=== PATIENT | male | born 1960 | race African-American/Black ===

== ENCOUNTER 2017-04-24 16:09 | Outpatient (CLI) | payer MEDICAID, MEDICARE ==
--- NOTE | 2017-04-25 11:13 | Diagnostic Imaging Report ---
Indications: hip pain Findings: Two views of the left hip were obtained. No acute fracture or malalignment definitely seen. Lower lumbar laminectomy and fusion apparatus noted. Bones are osteopenic. Impression: No acute injury identified
--- NOTE | 2017-04-25 11:13 | Diagnostic Imaging Report ---
Indications: hip pain Findings: Two views of the right hip were obtained. There is a revised right total hip replacement demonstrated. There is no fracture identified. Bones are osteopenic. There is no dislocation identified. Impression: Revised right total hip replacement. No acute fracture appreciated
== END 2017-04-24 18:09 | disposition home or self-care (01) ==
LOC: RAD 16:09
DX: M16.0 Bilateral primary osteoarthritis of hip (principal); M85.88 Other specified disorders of bone density and structure, other site; Z96.641 Presence of right artificial hip joint
CPT/HCPCS: 73502

== ENCOUNTER 2017-10-23 11:11 | Inpatient (IN) | payer MEDICARE, MEDICAID ==
[~2017-10-23] VITALS: Ht 188 cm; Wt 81.6 kg
[2017-10-23 11:35] VITALS: BP 126/72
[2017-10-23] MEDS ORDERED: HYDROmorphone 1mg/ml Carpuject IVP ONE (11:45)
[2017-10-23] MEDS ORDERED: Morphine Sulfate 4mg/ml Inj IM ONE (11:45)
[2017-10-23] MEDS ORDERED: Hydromorphone 0.5mg/0.5ml inj IVP ONE (12:00)
[2017-10-23] MEDS ORDERED: HYDROmorphone 1mg/ml Carpuject IM ONE (12:45)
--- NOTE | 2017-10-23 13:07 | Diagnostic Imaging Report ---
Indication: Neck pain radiating down arm and back pain Technique: Spiral acquisitions obtained through the cervical spine. No IV contrast utilized. Multiplanar reconstructions were generated. Total dose length product 564.28 mGycm. CTDIvol(s) 27.41 mGy. Dose reduction achieved using automated exposure control. Comparison: none Findings: There is minimal posterior offset of C3 on C4, C4-C5, and of C5 on C6. Otherwise normal bony alignment. The vertebral body heights are preserved. There is upper thoracic spine fusion hardware incompletely included. At C2-3, there is mild degenerative disc narrowing. There is broad-based posterior disc protrusion and ligamentum flavum hypertrophy which results in mild narrowing of the spinal canal to 9 mm minimum AP diameter. The neural foramina are preserved. At C3-4, there is severe degenerative disc narrowing a large posterior osteophyte impinges on the left lateral recess. There is severe left and moderate to severe right neural foraminal stenosis. At C4-5, there is there is moderate to severe degenerative disc narrowing. Posterior osteophytes result in mild narrowing of the spinal canal. There is severe narrowing of the bilateral neural foramina. Subchondral cyst with vacuum are seen in the adjacent vertebral bodies At C5-6, posterior osteophytes result in [id number] narrowing of the spinal canal. There is severe bilateral neural foraminal narrowing. There is moderate to severe degenerative disc narrowing. Subchondral cysts with vacuum are seen in the C5 vertebral body At C6-7, there is moderate degenerative disc narrowing. The neural foramina are minimally narrowed. At C7-T1, there is moderate to severe degenerative disc narrowing. There is mild narrowing the right neural foramen. The included extra spinal soft tissues are unremarkable Impression: No acute bony trauma Degenerative changes, as detailed level of the orbits as above The CT scanner at [facility] is accredited by the [employer] and the scans are performed using protocols designed to limit radiation exposure to as low as reasonably achievable to attain images of sufficient resolution adequate for diagnostic evaluation.
[2017-10-23 13:17] LABS: HEMATOCRIT 38.8 % (42.0-52.0); HEMOGLOBIN 12.5 G/DL (14.2-18.0); MEAN CORPUSCULAR VOLUME 94 FL (80-99); PLATELET COUNT 221 K/UL (150-450); RED BLOOD COUNT 4.12 M/UL (4.70-6.10); WHITE BLOOD COUNT 3.3 K/UL (4.8-10.8)
[2017-10-23 13:37] LABS: ALANINE AMINOTRANSFERASE 21 U/L (12-78); ALBUMIN 3.5 G/DL (3.4-5.0); ALBUMIN/GLOBULIN RATIO 0.9 (1.0-2.7); ALKALINE PHOSPHATASE 127 U/L (46-116); ANION GAP 8 mmol/L (5-15); ASPARTATE AMINO TRANSFERASE 55 U/L (15-37); BILIRUBIN,TOTAL 0.4 MG/DL (0.2-1.0); BLOOD UREA NITROGEN 14 mg/dL (7-18); CALCIUM 8.5 MG/DL (8.5-10.1); CARBON DIOXIDE 26 MMOL/L (21-32); CHLORIDE 105 MMOL/L (98-107); CREATININE 0.5 MG/DL (0.55-1.30); SODIUM 138 MMOL/L (136-145)
[2017-10-23 13:38] LABS: POTASSIUM 6.3 MMOL/L (3.5-5.1)
--- NOTE | 2017-10-23 14:22 | Emergency Room Report ---
History of Present Illness General Chief Complaint: Back Pain-No Injury Source: Patient Present Illness HPI 57-year-old male presents ED for evaluation. Patient states he is referred by his PMD. Complaining of severe neck pain and back pain. Denies any recent trauma. States pain is tingling down his right arm. States he had surgery on his back a few months ago. States the pain medications are not helping. Pain is 10 out of 10, sharp, radiating down both legs and down the right arm. Denies chest pain or shortness of breath. No other aggravating relieving factors. Denies any other associated symptoms Allergies: Coded Allergies: No Known Allergies (Verified Allergy, Unknown, 06/20/06) Patient History Past Medical History: HTN Past Surgical History: other - back surgery Pertinent Family History: none Social History: Denies: smoking, alcohol use, drug use Immunizations: UTD Reviewed Nursing Documentation: PMH: Agreed; PSxH: Agreed Nursing Documentation-PMH Hx Hypertension: Yes Review of Systems All Other Systems: negative except mentioned in HPI Physical Exam Vital Signs Date Time Temp Pulse Resp B/P (MAP) Pulse Ox O2 Delivery O2 Flow Rate FiO2 10/23/17 11:18 98.1 80 16 126/72 98 98.1 Sp02 EP Interpretation: reviewed, normal General Appearance: no apparent distress, alert, GCS 15, non-toxic Head: normocephalic, atraumatic Eyes: bilateral eye normal inspection, bilateral eye PERRL ENT: hearing grossly normal, normal pharynx, no angioedema, normal voice Neck: full range of motion, supple/symm/no masses, tender midline Respiratory: chest non-tender, lungs clear, normal breath sounds, speaking full sentences Cardiovascular #1: regular rate, rhythm, no edema Cardiovascular #2: 2+ carotid (R), 2+ carotid (L), 2+ radial (R), 2+ radial (L) , 2+ dorsalis pedis (R), 2+ dorsalis pedis (L) Gastrointestinal: normal bowel sounds, non tender, soft, non-distended, no guarding, no rebound Rectal: deferred Genitourinary: normal inspection, no CVA tenderness, vertebral tenderness Musculoskeletal: back normal, gait/station normal, normal range of motion, non- tender Neurologic: alert, oriented x3, responsive, motor strength/tone normal, sensory intact, speech normal Psychiatric: judgement/insight normal, memory normal, mood/affect normal, no suicidal/homicidal ideation Reflexes: 3+ bicep (R), 3+ bicep (L), 3+ tricep (R), 3+ tricep (L), 3+ knee (R) , 3+ knee (L) Skin: normal color, no rash, warm/dry, well hydrated Lymphatic: no adenopathy Medical Decision Making Diagnostic Impression: Primary Impression: Intractable back pain Additional Impression: Cervical radiculopathy ER Course Hospital Course 57 yo M presents to ED c/o pain in neck and back. radiating down R arm Differential diagnoses include: fx, dislocation, DJD Clinical course Patient placed on stretcher. 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 After initial history and physical I ordered labs, pain meds, CT Cspine Labs - no leukocytosis, Hb/Hct stable. K > 6 but hemolyzed repeat labs pending CT C spine extensive DJD Patient having cervical radiculopathy explaining that radiating pain down the right arm. Spoke to PMD. Patient has had difficulty with pain control despite adequate analgesia patient continues to have pain. Will require admission Case discussed with and he agreed to accept the patient to his service for further care and support I feel this is a highly complex case requiring extensive working including EKG/ Rhythm strip, Xray/CT/US, Blood/urine lab work, repeat exams while in ED, and administration of strong opiates/narcotics for pain control, admission to hospital or close patient follow up. Diagnosis -intractable back pain, cervical radiculopathy Patient admitted to floor in serious condition Labs Test 10/23/17 12:55 White Blood Count 3.3 K/UL (4.8-10.8) Red Blood Count 4.12 M/UL (4.70-6.10) Hemoglobin 12.5 G/DL (14.2-18.0) Hematocrit 38.8 % (42.0-52.0) Mean Corpuscular Volume 94 FL (80-99) Mean Corpuscular Hemoglobin 30.4 PG (27.0-31.0) Mean Corpuscular Hemoglobin Concent 32.3 G/DL (32.0-36.0) Red Cell Distribution Width 16.0 % (11.6-14.8) Platelet Count 221 K/UL (150-450) Mean Platelet Volume 7.3 FL (6.5-10.1) Neutrophils (%) (Auto) % (45.0-75.0) Lymphocytes (%) (Auto) % (20.0-45.0) Monocytes (%) (Auto) % (1.0-10.0) Eosinophils (%) (Auto) % (0.0-3.0) Basophils (%) (Auto) % (0.0-2.0) Differential Total Cells Counted 100 Neutrophils % (Manual) 55 % (45-75) Lymphocytes % (Manual) 32 % (20-45) Monocytes % (Manual) 9 % (1-10) Eosinophils % (Manual) 4 % (0-3) Basophils % (Manual) 0 % (0-2) Band Neutrophils 0 % (0-8) Platelet Estimate Adequate Platelet Morphology Normal Hypochromasia 1+ Anisocytosis 1+ Sodium Level 138 MMOL/L (136-145) Potassium Level 6.3 MMOL/L (3.5-5.1) Chloride Level 105 MMOL/L (98-107) Carbon Dioxide Level 26 MMOL/L (21-32) Anion Gap 8 mmol/L (5-15) Blood Urea Nitrogen 14 mg/dL (7-18) Creatinine 0.5 MG/DL (0.55-1.30) Estimat Glomerular Filtration Rate > 60 mL/min (>60) Glucose Level 100 MG/DL (74-106) Calcium Level 8.5 MG/DL (8.5-10.1) Total Bilirubin 0.4 MG/DL (0.2-1.0) Aspartate Amino Transf (AST/SGOT) 55 U/L (15-37) Alanine Aminotransferase (ALT/SGPT) 21 U/L (12-78) Alkaline Phosphatase 127 U/L (46-116) Total Protein 7.4 G/DL (6.4-8.2) Albumin 3.5 G/DL (3.4-5.0) Globulin 3.9 g/dL Albumin/Globulin Ratio 0.9 (1.0-2.7) CT/MRI/US Diagnostic Results CT/MRI/US Diagnostic Results : Imaging Test Ordered: CT C spine Impression multilevel DJD Last Vital Signs Date Time Temp Pulse Resp B/P (MAP) Pulse Ox O2 Delivery O2 Flow Rate FiO2 4/3/18 11:35 98.1 80 16 126/72 98 98.1 Status: improved Disposition: ADMITTED INPATIENT Condition: Serious Referrals: NON PHYSICIAN (PCP) Duran Clayton MD Oct 23, 2017 14:22
[2017-10-23] MEDS ORDERED: LYRICA75 M1 ORAL (15:22)
[2017-10-23] MEDS ORDERED: DILAUDID8 MG PO (15:22)
[2017-10-23] MEDS ORDERED: XANAX XR0.5 MG ORAL (15:27)
[2017-10-23] MEDS ORDERED: TAMSULOSIN HCL0.4 MG ORAL (15:27)
[2017-10-23 16:27] VITALS: BP 150/78
[2017-10-23] MEDS: Lyrica 50mg cap ORAL SCH (17:31)
[2017-10-23 20:00] VITALS: BP 113/64
[2017-10-23] MEDS: Tamsulosin 0.4mg cap ORAL SCH (20:48)
[2017-10-23] MEDS: Heparin 5000 units/ml inj SUBQ SCH (20:49)
--- NOTE | 2017-10-23 21:56 | History & Physical ---
History and Physical History & Physicial thi sis an unfortunate male with historyof degernmative disc disease initrally [place] spine [place] in [place] has had hip painand back pain noted to have diskitis o fthe lyumbar spine had spien surgery for that had fusion and had recurent spine MRSA infection He then had septic hip and had few hip surgery and revision and required prolonged antibiotic therapy he has been seen and eval by Dr curiel ID he has been having a l;ot of pain recetnly his painDr discharged him fromhis clinic PMH leukopenia thrombocytopenioa hepatiti sc failed back syndrome PSH: numerous spine and hip surgery historyof tracheostomy MEDICATION lyrica xanax flomax doxycyline was on alot of painmeds before vitals reviewed no jvd cta s1,as12,rrr soft no clubbing lumbar and thoracic failed spine disease chronic pain ? tolerance to medicaiotn nad dependency plan get ct lumbar and thoracic and get social service director eval transfer to rehab soon MARANDA HENDRICKSON Oct 23, 2017 21:56
[2017-10-23 23:57] VITALS: BP 99/57
[2017-10-24 01:00] VITALS: BP 110/49
[2017-10-24 04:00] VITALS: BP 116/66
[2017-10-24 07:03] LABS: ALANINE AMINOTRANSFERASE 17 U/L (12-78); ALBUMIN 3.1 G/DL (3.4-5.0); ALKALINE PHOSPHATASE 120 U/L (46-116); ANION GAP 6 mmol/L (5-15); ASPARTATE AMINO TRANSFERASE 31 U/L (15-37); BILIRUBIN,TOTAL 0.4 MG/DL (0.2-1.0); BLOOD UREA NITROGEN 21 mg/dL (7-18); CALCIUM 8.3 MG/DL (8.5-10.1); CARBON DIOXIDE 28 MMOL/L (21-32); CHLORIDE 103 MMOL/L (98-107); CREATININE 0.7 MG/DL (0.55-1.30); POTASSIUM 3.7 MMOL/L (3.5-5.1); SODIUM 137 MMOL/L (136-145)
[2017-10-24 07:09] LABS: BASOPHILS % (AUTO) 1.3 % (0.0-2.0); EOSINOPHILS % (AUTO) 7.1 % (0.0-3.0); HEMATOCRIT 36.8 % (42.0-52.0); HEMOGLOBIN 11.6 G/DL (14.2-18.0); LYMPHOCYTES % (AUTO) 42.2 % (20.0-45.0); MEAN CORPUSCULAR VOLUME 95 FL (80-99); MONOCYTES % (AUTO) 11.3 % (1.0-10.0); PLATELET COUNT 187 K/UL (150-450); RED BLOOD COUNT 3.89 M/UL (4.70-6.10); RED CELL DISTRIBUTION WIDTH 15.6 % (11.6-14.8); WHITE BLOOD COUNT 3.6 K/UL (4.8-10.8)
[2017-10-24 08:00] VITALS: BP 114/54
[2017-10-24] MEDS: Lyrica 50mg cap ORAL SCH ×3 (08:16→17:36)
[2017-10-24] MEDS: ALPRAZolam 0.5mg tab ORAL SCH ×2 (08:16→17:36)
[2017-10-24] MEDS: Heparin 5000 units/ml inj SUBQ SCH ×2 (08:20→20:29)
[2017-10-24] MEDS ORDERED: ALPRAZolam 0.5mg tab ORAL SCH (09:00)
--- NOTE | 2017-10-24 09:26 | Diagnostic Imaging Report ---
Indication: Back pain Technique: Continuous helical transaxial imaging of the lumbar spine was obtained from the lung bases to the pubic symphysis. No IV contrast was administered. Coronal 2-D reformats were also obtained. Study obtained in a Siemens sensation [address] Total Dose length Product (DLP): 629.[address] Dose Index Volume (CTDIvol): 17.51 mGy Comparison: None Findings: The field of view encompasses T11 through majority of the sacrum. Multilevel posterior fusion has been performed with pedicle screws and fusion rods from T11 through S1. Above T11 there may be continuation of hardware but this is beyond the field of view. The fusion apparatus is overlapping. At the lower thoracic spine, there are bilateral pedicle screws and fusion rods at both T11 and T12. The rods are interconnected with a set of posterior lumbar fusion rods. The lumbar fusion rods are associated with bilateral pedicle screws at L1, left unilateral pedicle screw at L2, bilateral pedicle screws at L3, L4, L5 and S1. On the left side there is a screw that traverses the left ilium adjacent to and partly traversing the sacroiliac joint. There is diffuse osseous union of the facets throughout the visualized portions of the lower thoracic and lumbar spine. Multilevel interbody fusion also noted throughout the lumbar spine. Buttressing anterior vertebral screw also noted at the anterior inferior aspect of the L4 vertebra. Prosthetic disks at L1-2, L2-3, L3-4, L4-5 demonstrated. Partial fusion of the right sacroiliac joint noted. There is streak artifact from metallic hardware limiting evaluation. But there is no obvious fracture. Laminectomies also noted at some of the levels including left side at L1-2, bilateral at L4-5 and L5-S1. Moderate to PATIENT is noted within the aorta. Moderate amount of fecal material distending the rectosigmoid colon. Right total hip prosthesis noted. Evaluation of the central spinal canal is difficult because of the artifact present. At L4-5 there is a large osseous fragment that projects into the canal. For further evaluation of this MR may be of benefit. IMPRESSION: Multilevel lower thoracic and lumbar fusion as described above. Diffuse anterior interbody and posterior facet fusion noted. Multilevel laminectomy is also present. Prominent bone spur projecting into the thecal sac at L4-5. Further evaluation of this with MR may be of benefit as warranted clinically. Atherosclerotic disease Fecal impaction The CT scanner at [facility] is accredited by the [employer] and the scans are performed using dose optimization techniques as appropriate to a performed exam including Automatic Exposure control.
[2017-10-24 12:00] VITALS: BP 142/62
[2017-10-24] MEDS ORDERED: NORVASC2.5 MG ORAL (12:28)
[2017-10-24] MEDS ORDERED: SOMA350 MG PO (12:28)
--- NOTE | 2017-10-24 14:52 | Consultation ---
Consult Note Assessment/Plan Renal consult dictated # [id number] KIMBERLY ALVAREZ Oct 24, 2017 14:52
[2017-10-24 16:00] VITALS: BP 129/68
--- NOTE | 2017-10-24 19:15 | Consultation ---
DATE OF CONSULTATION: 10/24/2017 NEPHROLOGY CONSULTATION CONSULTING PHYSICIAN: Naresh Bhatt M.D. REFERRING PHYSICIAN: Raphael Bah M.D. REASON FOR CONSULTATION: Hyperkalemia, BPH, and mild hypertension. HISTORY OF PRESENT ILLNESS: The patient is a 57-year-old male who has had back pain. The patient has had problems with diskitis surgery with fusion and recurrent spine MRSA infections. The patient was admitted and was found to have a potassium 6.3 yesterday however the potassium is down to 3.7 today, this in the presence of a normal kidney function. The patient has also some elevation of blood pressure 142/62 and also he has history of enlarged prostate and I was asked to see him in Nephrology consultation. PAST MEDICAL HISTORY: Also includes history of hepatitis C, failed back syndrome, numerous supine and hip surgeries, history of tracheostomy, leukopenia, and thrombocytopenia. MEDICATIONS: Reviewed in the EMR. SOCIAL HISTORY: The patient has been drinking beer recently because of his pain. He lives in the unit with his aunt. ALLERGIES: No known drug allergies. REVIEW OF SYSTEMS: Noncontributory. PHYSICAL EXAMINATION: GENERAL: The patient is a 57-year-old male, in no acute distress. VITAL SIGNS: Blood pressure 142/62, pulse 63, temperature 97.5, respiratory is 20. HEENT: [place] conjunctivae. Anicteric sclerae. NECK: Supple. LUNGS: Clear to auscultation. HEART: S1 and S2 without murmurs or rubs. ABDOMEN: Soft, nontender. EXTREMITIES: No cyanosis or edema. LABORATORY FINDINGS: CBC shows WBC of 3600, hematocrit 36.8, hemoglobin is 11.6, platelets 187,000. Chemistry panel shows a serum sodium of 137, potassium 3.7, chloride 103, CO2 of 28, BUN is 21, and creatinine 0.7, calcium is 8.3. ASSESSMENT: This is a 57-year-old male who was admitted with back pain and shoulder pain. I was asked to see him because of his hyperkalemia. It appears that his hyperkalemia had been a laboratory error since the repeat is 3.7, also patient was not getting any potassium at home, also his kidney function is normal. The other issue he has is his BPH and he is taking Flomax. He states that he is going only once at night to urinate. It appears that his symptoms are under control. His elevation of blood pressure may be related to his pain at this point. PLAN: 1. PSA level will be checked to make sure the patient does not have any sign of any malignancy with high PSA. 2. I would continue Flomax as is. 3. A vitamin D level will be checked as his serum calcium is somewhat on the low side. 4. I would hold off any blood pressure medications and observe him for now. Thank you very much, Dr. Bah, for this consultation. Naresh Bhatt M.D. DR: Gabrielle JOB#: [id number] CC:
[2017-10-24 19:48] VITALS: BP 135/75
[2017-10-24] MEDS: Tamsulosin 0.4mg cap ORAL SCH (20:27)
--- NOTE | 2017-10-24 20:46 | General Progress Note ---
Assessment/Plan Status Narrative hyperkalemia ? lab error failed back synderorme cervical adisc disease groin numbness likleywill be permenant to rehab [facility] [place]. Subjective Date patient seen: Oct 24, 2017 Time patient seen: 20:44 Constitutional: Reports: no symptoms HEENT: Reports: no symptoms Allergies: Coded Allergies: No Known Allergies (Verified Allergy, Unknown, 06/20/06) Subjective compliandso f pain no fevernochills no treasure stpain saha sgroin numbnes sand tingling Objective Last 24 Hour Vital Signs Date Time Temp Pulse Resp B/P (MAP) Pulse Ox O2 Delivery O2 Flow Rate FiO2 10/24/17 19:54 Room Air 10/24/17 19:48 97.3 66 20 135/75 100 Room Air 97.3 10/24/17 18:28 97.9 10/24/17 17:58 97.9 10/24/17 17:20 Room Air 10/24/17 16:00 97.9 62 18 129/68 99 97.9 10/24/17 13:37 97.5 10/24/17 13:01 Room Air 10/24/17 12:00 97.5 63 20 142/62 100 97.5 10/24/17 09:27 97.3 10/24/17 08:00 97.3 70 19 114/54 99 Room Air 97.3 10/24/17 08:00 97.3 70 19 114/54 99 97.3 10/24/17 05:06 97.8 10/24/17 04:19 Room Air 10/24/17 04:00 97.8 73 18 116/66 97 97.8 10/24/17 01:02 97.6 10/24/17 01:00 74 110/49 10/24/17 00:12 Room Air 10/23/17 23:57 97.6 70 18 99/57 97 97.6 10/23/17 20:49 98.3 Intake and Output 10/23/17 10/24/17 19:00 07:00 Intake Total 375 ml 480 ml Balance 375 ml 480 ml Intake Oral 375 ml 480 ml # Voids 2 2 # Bowel Movements 1 Laboratory Tests 10/24/17 05:10: White Blood Count 3.6L, Red Blood Count 3.89L, Hemoglobin 11.6L, Hematocrit 36.8L, Mean Corpuscular Volume 95, Mean Corpuscular Hemoglobin 29.8, Mean Corpuscular Hemoglobin Concent 31.4L, Red Cell Distribution Width 15.6H, Platelet Count 187, Mean Platelet Volume 7.2, Neutrophils (%) (Auto) 38.0L, Lymphocytes (%) (Auto) 42.2, Monocytes (%) (Auto) 11.3H, Eosinophils (%) (Auto) 7.1H, Basophils (%) (Auto) 1.3, Sodium Level 137, Potassium Level 3.7, Chloride Level 103, Carbon Dioxide Level 28, Anion Gap 6, Blood Urea Nitrogen 21H, Creatinine 0.7, Estimat Glomerular Filtration Rate > 60, Glucose Level 100, Calcium Level 8.3L, Total Bilirubin 0.4, Aspartate Amino Transf (AST/SGOT) 31, Alanine Aminotransferase (ALT/SGPT) 17, Alkaline Phosphatase 120H, Total Protein 6.3L, Albumin 3.1L, Globulin 3.2, Albumin/Globulin Ratio 1.0 Height (Feet): 6 Height (Inches): 2.00 Weight (Pounds): 180 General Appearance: WD/WN Cardiovascular: normal rate, regular rhythm, no JVD Respiratory/Chest: chest wall non-tender Abdomen: soft MARANDA HENDRICKSON Oct 24, 2017 20:46
[2017-10-24] MEDS: Zolpidem 5mg tab ORAL PRN (23:17)
[2017-10-25] VITALS: BP 105/62
[2017-10-25 01:32] LABS: APPEARANCE,URINE CLEAR; BILIRUBIN, URINE NEGATIVE (NEGATIVE); COLOR,URINE PALE YELLOW; GLUCOSE, URINE (UA) NEGATIVE (NEGATIVE); KETONES,URINE NEGATIVE (NEGATIVE); LEUKOCYTE ESTERASE ,URINE NEGATIVE (NEGATIVE); NITRITE,URINE NEGATIVE (NEGATIVE); PH,URINE 7 (4.5-8.0); PROTEIN,URINE NEGATIVE (NEGATIVE); UROBILINOGEN,URINE NORMAL MG/DL (0.0-1.0)
[2017-10-25 04:00] VITALS: BP 116/77
[2017-10-25 08:00] VITALS: BP 134/76
[2017-10-25] MEDS: ALPRAZolam 0.5mg tab ORAL SCH ×2 (08:51→17:47)
[2017-10-25] MEDS: Lyrica 50mg cap ORAL SCH ×3 (08:51→17:47)
[2017-10-25] MEDS: Heparin 5000 units/ml inj SUBQ SCH ×2 (08:55→20:12)
[2017-10-25 12:00] VITALS: BP 120/59
--- NOTE | 2017-10-25 12:11 | Nephrology Progress Note ---
Assessment/Plan Problem List: (1) Cervical radiculopathy (2) Intractable back pain (3) Urinary retention Assessment PSA low at 0.18 Plan cont flow max pain meds watch BP Subjective Subjective C/O pains and aches Objective Objective Last 24 Hour Vital Signs Date Time Temp Pulse Resp B/P (MAP) Pulse Ox O2 Delivery O2 Flow Rate FiO2 10/25/17 08:00 97.6 54 19 134/76 100 97.6 10/25/17 04:00 97.3 58 18 116/77 99 97.3 10/25/17 02:51 97.5 10/25/17 02:21 97.5 10/25/17 00:28 Room Air 10/25/17 00:00 97.5 66 18 105/62 96 97.5 10/24/17 22:06 97.3 10/24/17 19:54 Room Air 10/24/17 19:48 97.3 66 20 135/75 100 Room Air 97.3 10/24/17 17:58 97.9 10/24/17 17:20 Room Air 10/24/17 16:00 97.9 62 18 129/68 99 97.9 10/24/17 13:37 97.5 10/24/17 13:01 Room Air Intake and Output 10/24/17 10/25/17 19:00 07:00 Intake Total 2500 ml 900 ml Output Total 3200 ml 2400 ml Balance -700 ml -1500 ml Intake Oral 2500 ml 900 ml Output Urine Total 3200 ml 2400 ml Laboratory Tests 10/24/17 23:32: Urine Color Pale yellow, Urine Appearance Clear, Urine pH 7, Urine Specific [place] 1.010, Urine Protein Negative, Urine Glucose (UA) Negative, Urine Ketones Negative, Urine Occult Blood Negative, Urine Nitrite Negative, Urine Bilirubin Negative, Urine Urobilinogen Normal, Urine Leukocyte Esterase Negative , Urine RBC 0, Urine WBC 0, Urine Squamous Epithelial Cells None, Urine Bacteria None 10/25/17 06:37: Prostate Specific Antigen 0.18, Vitamin D 25-Hydroxy [Pending], 25-Hydroxy Vitamin D2 [Pending], 25-Hydroxy Vitamin D3 [Pending] Height (Feet): 6 Height (Inches): 2.00 Weight (Pounds): 180 Cardiovascular: normal rate Respiratory/Chest: lungs clear Extremities: other - no edema KIMBERLY ALVAREZ Oct 25, 2017 12:11
[2017-10-25 15:49] VITALS: BP 124/70
--- NOTE | 2017-10-25 19:50 | General Progress Note ---
Assessment/Plan Status Narrative failed back syndroem failed thoraci syndrome cervical radiculitis jay arhtropahty history of tracheostomy history of hep c leukopenia history plan [facility] [place] and have him have shoulder surgery then to go to rehab. Subjective Date patient seen: Oct 25, 2017 Time patient seen: 19:49 Constitutional: Reports: no symptoms HEENT: Reports: no symptoms Cardiovascular: Reports: no symptoms Allergies: Coded Allergies: No Known Allergies (Verified Allergy, Unknown, 06/20/06) Subjective compliandso f pain no fevernochills no treasure stpain saha sgroin numbnes sand tingling Objective Last 24 Hour Vital Signs Date Time Temp Pulse Resp B/P (MAP) Pulse Ox O2 Delivery O2 Flow Rate FiO2 10/25/17 15:49 96.9 60 20 124/70 100 96.9 10/25/17 12:00 96.5 66 20 120/59 100 96.5 10/25/17 08:00 97.6 54 19 134/76 100 97.6 10/25/17 04:00 97.3 58 18 116/77 99 97.3 10/25/17 02:51 97.5 10/25/17 02:21 97.5 10/25/17 00:28 Room Air 10/25/17 00:00 97.5 66 18 105/62 96 97.5 10/24/17 22:06 97.3 10/24/17 19:54 Room Air Intake and Output 10/24/17 10/25/17 19:00 07:00 Intake Total 2500 ml 900 ml Output Total 3200 ml 2400 ml Balance -700 ml -1500 ml Intake Oral 2500 ml 900 ml Output Urine Total 3200 ml 2400 ml Laboratory Tests 10/24/17 23:32: Urine Color Pale yellow, Urine Appearance Clear, Urine pH 7, Urine Specific [place] 1.010, Urine Protein Negative, Urine Glucose (UA) Negative, Urine Ketones Negative, Urine Occult Blood Negative, Urine Nitrite Negative, Urine Bilirubin Negative, Urine Urobilinogen Normal, Urine Leukocyte Esterase Negative , Urine RBC 0, Urine WBC 0, Urine Squamous Epithelial Cells None, Urine Bacteria None 10/25/17 06:37: Prostate Specific Antigen 0.18, Vitamin D 25-Hydroxy [Pending], 25-Hydroxy Vitamin D2 [Pending], 25-Hydroxy Vitamin D3 [Pending] Height (Feet): 6 Height (Inches): 2.00 Weight (Pounds): 180 General Appearance: WD/WN Cardiovascular: no JVD Respiratory/Chest: lungs clear Abdomen: non tender, soft MARANDA HENDRICKSON Oct 25, 2017 19:50
[2017-10-25 20:00] VITALS: BP 130/69
[2017-10-25] MEDS: Tamsulosin 0.4mg cap ORAL SCH (20:08)
--- NOTE | 2017-10-25 20:11 | Consultation ---
Consult Note Consult Note Dictated no. [id number]. VANESA DIEGO Oct 25, 2017 20:11
--- NOTE | 2017-10-25 21:30 | Consultation ---
DATE OF CONSULTATION: 10/25/2017 CONSULTING PHYSICIAN: Cristian Contreras M.D. ATTENDING PHYSICIAN: Raphael Bah M.D. REASON FOR CONSULTATION: Detoxication for opiates. CHIEF COMPLAINT: The patient is a 57-year-old male with long history of lumbar stenosis and was admitted with lumbar spine pain and bilateral hip pain. HISTORY OF PRESENT ILLNESS: The patient has a long history of lumbar spine pain. The patient is status post thoracolumbar fusion. The patient also has had hip surgery. The patient presented to [place] emergency room. The patient was admitted for low back pain and bilateral hip pain. REVIEW OF SYSTEMS: CONSTITUTIONAL: The patient denies weight loss or gain. The patient denies fevers or chills. HEENT: The patient denies ear or throat pain. The patient denies headache. CARDIOVASCULAR: The patient denies palpitations or chest pain. CHEST: The patient denies wheezes or shortness of breath. ABDOMINAL: The patient denies nausea, vomiting, diarrhea, or constipation. GENITOURINARY: The patient denies dysuria or increased frequency of urination. NEUROMUSCULAR: The patient complains of low back pain as above. The patient also complains of neck pain. PAST MEDICAL HISTORY: Significant for: 1. Hypertension. 2. Lumbar stenosis. 3. I am next hepatitis C. PAST SURGICAL HISTORY: Significant for: 1. Multiple back surgeries including thoracolumbar fusion. 2. Bilateral hip surgery. CURRENT MEDICATIONS: 1. Alprazolam 0.5 mg p.o. daily. 2. Amlodipine 2.5 mg p.o. daily. 3. Soma 350 mg p.o. three times daily. 4. Dilaudid 4 mg p.o. q.6 h. p.r.n. 5. Lyrica 100 mg p.o. three times daily. 6. Flomax 0.4 mg p.o. at bedtime. ALLERGIES: No known drug allergies. SOCIAL HISTORY: The patient is single and is disabled. The patient denies tobacco or alcohol use. PHYSICAL EXAMINATION: VITAL SIGNS: Temperature 97.3, respirations 18, pulse 58, and blood pressure . GENERAL: The patient is a well-developed and well-nourished thin-appearing male, in no apparent distress. HEENT: Eyes, pupils are equal and responsive to light and accommodation. Extraocular movements are intact. NECK: Supple without lymphadenopathy. CHEST: Lungs are clear to auscultation bilaterally without wheezes or rales. CARDIOVASCULAR: Regular rate. S1, S2 normal without murmurs, rubs, or gallops. ABDOMEN: Soft, nontender, and nondistended. Positive bowel sounds. No evidence of hepatosplenomegaly. Currently, no rebound or guarding noted. EXTREMITIES: Negative for clubbing, cyanosis, or edema. RECTAL/GENITAL: Refused. NEUROLOGIC: Cranial nerves II to XII are grossly intact without focal deficits. BACK: Lumbar spine pain to palpation. LABORATORY AND DIAGNOSTIC DATA: Laboratory studies, WBC 3.3, hemoglobin 12.5, hematocrit 38.8, and platelets 221,000. Sodium 138, potassium 4.2, chloride 105, CO2 26, BUN 14, creatinine 0.5, and glucose 100. CT scan of the lumbar spine revealed thoracic and lumbar spine fusion. There are no acute fractures noted. ASSESSMENT: This is a 57-year-old male with: 1. Lumbar spine pain. 2. Lumbar stenosis. 3. Cervical spine pain. 4. Acute radicular syndrome. 5. Hypertension. 6. Hepatitis C. 7. Benign prostatic hypertrophy. TREATMENT: 1. Low back pain/neck pain. The patient is currently using intravenous Dilaudid. The patient has been offered transfer to [facility] for opiate detoxification. Case management is aware. The patient will be transferred to [facility] at [place] if and when the patient is accepted. 2. Hypertension. Continue Norvasc as above. 3. Hepatitis C, status post therapy. 4. Benign prostatic hypertrophy. Continue Flomax as above. Cristian Contreras M.D. DR: SERGIO JOB#: [id number] CC:
[2017-10-26] VITALS: BP 123/66
[2017-10-26] MEDS: Zolpidem 5mg tab ORAL PRN ×2 (00:18→20:29)
[2017-10-26 04:00] VITALS: BP 124/73
[2017-10-26 08:00] VITALS: BP 137/61
[2017-10-26] MEDS: ALPRAZolam 0.5mg tab ORAL SCH ×2 (09:52→18:00)
[2017-10-26] MEDS: Lyrica 50mg cap ORAL SCH ×3 (09:52→18:00)
[2017-10-26] MEDS: Heparin 5000 units/ml inj SUBQ SCH ×2 (09:57→20:30)
[2017-10-26 11:46] VITALS: BP 125/70
--- NOTE | 2017-10-26 13:48 | Nephrology Progress Note ---
Assessment/Plan Problem List: (1) Cervical radiculopathy (2) Intractable back pain (3) Urinary retention Assessment PSA low at 0.18 Plan cont flow max pain meds watch BP will discuss with Dr Bah Subjective Subjective wants surgery on his R shoulder Objective Objective Last 24 Hour Vital Signs Date Time Temp Pulse Resp B/P (MAP) Pulse Ox O2 Delivery O2 Flow Rate FiO2 10/26/17 11:46 96.8 70 20 125/70 99 96.8 10/26/17 08:00 97.1 65 20 137/61 98 97.1 10/26/17 04:00 97.3 64 18 124/73 100 97.3 10/26/17 00:00 97.3 62 18 123/66 100 97.3 10/25/17 20:00 97.0 64 20 130/69 100 97.0 10/25/17 15:49 96.9 60 20 124/70 100 96.9 Intake and Output 10/25/17 10/26/17 19:00 07:00 Intake Total 730 ml 800 ml Output Total 700 ml Balance 30 ml 800 ml Intake Oral 730 ml 800 ml Output Urine Total 700 ml # Voids 1 # Bowel Movements 1 1 Height (Feet): 6 Height (Inches): 2.00 Weight (Pounds): 180 Cardiovascular: normal rate Respiratory/Chest: lungs clear IKMBERLY ALVAREZ Oct 26, 2017 13:48
[2017-10-26 15:34] VITALS: BP 121/83
[2017-10-26] MEDS: HYDROcodone/Acetamin 10/325 tab ORAL PRN ×2 (18:19→22:40)
[2017-10-26 20:00] VITALS: BP 143/72
[2017-10-26] MEDS: Tamsulosin 0.4mg cap ORAL SCH (20:29)
[2017-10-27] VITALS (7 sets, daily range): BP systolic 113–154; BP diastolic 64–80
[2017-10-27] MEDS: HYDROcodone/Acetamin 10/325 tab ORAL PRN ×5 (02:40→19:52)
[2017-10-27] MEDS: Lyrica 50mg cap ORAL SCH ×3 (08:45→17:34)
[2017-10-27] MEDS: ALPRAZolam 0.5mg tab ORAL SCH ×2 (08:45→17:34)
[2017-10-27] MEDS: Heparin 5000 units/ml inj SUBQ SCH ×2 (08:45→19:53)
--- NOTE | 2017-10-27 14:44 | Nephrology Progress Note ---
Assessment/Plan Problem List: (1) Cervical radiculopathy (2) Intractable back pain (3) Urinary retention Assessment PSA low at 0.18 Plan cont flow max pain meds check Vit D Discussed with Dr Bah Subjective Subjective In NAD Objective Objective Last 24 Hour Vital Signs Date Time Temp Pulse Resp B/P (MAP) Pulse Ox O2 Delivery O2 Flow Rate FiO2 10/27/17 12:01 97.9 69 20 154/78 100 97.9 10/27/17 08:09 97.3 65 20 117/64 99 97.3 10/27/17 05:31 97.0 68 16 113/76 98 97.0 10/27/17 04:00 96.9 68 16 113/76 98 96.9 10/27/17 00:00 97.9 81 17 145/80 93 97.9 10/26/17 20:00 97.0 61 14 143/72 100 97.0 10/26/17 15:34 96.9 71 20 121/83 99 96.9 Intake and Output 10/26/17 10/27/17 19:00 07:00 Intake Total 970 ml 2100 ml Output Total 1900 ml Balance 970 ml 200 ml Intake Oral 970 ml 2100 ml Output Urine Total 1900 ml # Voids 4 # Bowel Movements 1 1 Height (Feet): 6 Height (Inches): 2.00 Weight (Pounds): 180 Cardiovascular: normal rate Respiratory/Chest: lungs clear KIMBERLY ALVAREZ Oct 27, 2017 14:44
[2017-10-27] MEDS: Tamsulosin 0.4mg cap ORAL SCH (19:51)
[2017-10-28] VITALS: BP 153/73
[2017-10-28] MEDS: HYDROcodone/Acetamin 10/325 tab ORAL PRN ×6 (00:06→21:28)
[2017-10-28 04:00] VITALS: BP 108/59
[2017-10-28 07:59] VITALS: BP 159/84
[2017-10-28] MEDS: ALPRAZolam 0.5mg tab ORAL SCH ×2 (09:00→18:00)
[2017-10-28] MEDS: Lyrica 50mg cap ORAL SCH ×3 (09:00→18:04)
[2017-10-28] MEDS: Heparin 5000 units/ml inj SUBQ SCH ×2 (09:00→21:29)
[2017-10-28 12:00] VITALS: BP 153/78
--- NOTE | 2017-10-28 14:02 | General Progress Note ---
Assessment/Plan Problem List: (1) Cervical radiculopathy ICD Codes: M54.12 - Radiculopathy, cervical region SNOMED: 16375819 (2) Intractable back pain ICD Codes: M54.9 - Dorsalgia, unspecified SNOMED: 482862416 (3) Urinary retention ICD Codes: R33.9 - Retention of urine, unspecified SNOMED: 189181632 Assessment/Plan Po Pain meds await placement Subjective Allergies: Coded Allergies: No Known Allergies (Verified Allergy, Unknown, 06/20/06) Subjective seen for Dr Bah feels the same Objective Last 24 Hour Vital Signs Date Time Temp Pulse Resp B/P (MAP) Pulse Ox O2 Delivery O2 Flow Rate FiO2 10/28/17 12:00 97.6 69 18 153/78 100 Room Air 97.6 10/28/17 07:59 97.6 65 18 159/84 99 Room Air 97.6 10/28/17 06:29 97.9 10/28/17 05:31 97.9 10/28/17 04:00 98 Room Air 10/28/17 04:00 97.9 60 19 108/59 98 Room Air 97.9 10/28/17 00:06 97.7 10/28/17 00:00 100 Room Air 10/28/17 00:00 97.7 60 18 153/73 100 Room Air 97.7 10/27/17 20:33 100 Room Air 10/27/17 20:02 97.7 61 20 138/69 100 Room Air 97.7 10/27/17 19:52 98.0 10/27/17 15:43 98.0 61 20 145/74 100 98.0 Intake and Output 10/27/17 10/28/17 19:00 07:00 Intake Total 780 ml Balance 780 ml Intake Oral 780 ml # Voids 2 Height (Feet): 6 Height (Inches): 2.00 Weight (Pounds): 180 Cardiovascular: normal rate Respiratory/Chest: lungs clear Edema: no edema noted KIMBERLY Ohara Oct 28, 2017 14:02
[2017-10-28 15:54] VITALS: BP 130/67
--- NOTE | 2017-10-28 19:59 | General Progress Note ---
Assessment/Plan Status Narrative impression: polyarhtralgia cervical disc disease failed bacjk syndroem history of septic spien history of septic hi[p plan transfer to rehab when room available. Subjective Date patient seen: Oct 28, 2017 Time patient seen: 19:58 HEENT: Reports: no symptoms Allergies: Coded Allergies: No Known Allergies (Verified Allergy, Unknown, 06/20/06) Subjective has shoudler and neck pain Objective Last 24 Hour Vital Signs Date Time Temp Pulse Resp B/P (MAP) Pulse Ox O2 Delivery O2 Flow Rate FiO2 10/28/17 15:54 97.3 56 18 130/67 99 Room Air 97.3 10/28/17 12:00 97.6 69 18 153/78 100 Room Air 97.6 10/28/17 07:59 97.6 65 18 159/84 99 Room Air 97.6 10/28/17 06:29 97.9 10/28/17 05:31 97.9 10/28/17 04:00 98 Room Air 10/28/17 04:00 97.9 60 19 108/59 98 Room Air 97.9 10/28/17 00:06 97.7 10/28/17 00:00 100 Room Air 10/28/17 00:00 97.7 60 18 153/73 100 Room Air 97.7 10/27/17 20:33 100 Room Air 10/27/17 20:02 97.7 61 20 138/69 100 Room Air 97.7 Intake and Output 10/27/17 10/28/17 19:00 07:00 Intake Total 780 ml Balance 780 ml Intake Oral 780 ml # Voids 2 no jvd cta s12,sw,frrr soft has a trach site wound wel lhealed cta soft s1.s2.rrr Height (Feet): 6 Height (Inches): 2.00 Weight (Pounds): 180 MARANDA HENDRICKSON Oct 28, 2017 19:59
[2017-10-28 20:00] VITALS: BP 147/68
[2017-10-28] MEDS: Tamsulosin 0.4mg cap ORAL SCH (21:27)
[2017-10-29] VITALS: BP 148/74
[2017-10-29 04:00] VITALS: BP 141/76
[2017-10-29] MEDS: HYDROcodone/Acetamin 10/325 tab ORAL PRN ×2 (04:45→09:03)
[2017-10-29 08:00] VITALS: BP 134/69
[2017-10-29] MEDS: Lyrica 50mg cap ORAL SCH (09:04)
[2017-10-29] MEDS: ALPRAZolam 0.5mg tab ORAL SCH (09:04)
[2017-10-29] MEDS: Heparin 5000 units/ml inj SUBQ SCH (09:05)
[2017-10-29 12:00] VITALS: BP 118/65
--- NOTE | 2017-10-30 13:48 | Discharge Summary ---
Discharge Summary Discharge Summary Discharge Summary DATE OF ADMISSION: 10/23/2017 DATE OF DISCHARGE: 10/29/2017 REASON FOR ADMISSION: 57 years old male with history of multiple back surgeries, history of septic spine and septic hip, chronic back pain, hypertension, GERD, hepatitis C, s/p treatment, presented to emergency department for evaluation. Patient complained of severe neck pain and back pain. He denied recent trauma. He reported pain tingling down his right arm. Patient apparently had surgery in his back few months ago. Patient reported that pain medications were not helping. Patient reported pain 10 out of 10 ,sharp, radiating down both legs and down the right arm. Patient denied chest pain, shortness of breath. Vital signs were stable. CT of the cervical spine revealed no acute bony trauma, however it showed degenerative multilevel changes. CT L-spine revealed multilevel lower thoracic and lumbar fusion. Diffuse anterior interbody and posterior facet fusion. Multilevel laminectomy. Prominent bone spur projecting into the thecal sac at L4-L5. Laboratory workup was unremarkable , except potassium -6.3. Patient was admitted with diagnosis of cervical radiculopathy, chronic back pain, chronic pain. CONSULTANTS: retail marketing coordinator Dr. Robles detox specialist Dr. Contreras [facility]SE: Patient admitted to medical surgical floor. Nephrology and detox specialist consults were requested. Pain management was addressed with different analgesics including Soma, Lyrica and Dilaudid. Patient was closely monitored. Patient was working with physical and occupational therapists. Full precautions were maintained. Hyperkalemia was corrected, potassium down to 4.2 after treatment. Vitamin D level low -26, patient will need replacement of vitamin D as outpatient. Patient status post treatment for hepatitis C. LFT were within normal limits. Flomax was continued , no difficulty with voiding. Blood pressure was managed with calcium channel yung with holding parameters as needed. Initial plan was to transfer patient to [facility] for opiate detoxification program. However, unable to transfer. Unable to transfer patient into the shelter facility as well . Patient was discharged home. Patient was stable for discharge. FINAL DIAGNOSES: Cervical disc disease Acute radicular syndrome Failed back syndrome Chronic pain Lumbar stenosis History of septic spine History of septic hip Polyarthralgia Hypertension Hepatitis C , status post treatment BPH Hyperkalemia, resolved DISCHARGE MEDICATIONS: See Medication Reconciliation list. DISCHARGE INSTRUCTIONS: Patient was discharged home Follow up with primary care provide in one week. I have been assigned to dictate discharge summary for this account. I was not involved in the patient's management. Abdirahman (AvinashMaryanne cole NP Oct 30, 2017 13:48
== END 2017-10-29 13:00 | disposition home or self-care (01) | DRG 552 ==
LOC: EMR 12:05 → 4W 13:20 → EDBEDREQ 13:32
DX: M50.10 Cervical disc disorder with radiculopathy, unspecified cervical region (principal); M46.46 Discitis, unspecified, lumbar region; N40.0 Benign prostatic hyperplasia without lower urinary tract symptoms; B19.20 Unspecified viral hepatitis C without hepatic coma; I10 Essential (primary) hypertension; M48.061 Spinal stenosis, lumbar region without neurogenic claudication; M25.50 Pain in unspecified joint; E87.5 Hyperkalemia; Z98.1 Arthrodesis status; Z86.14 Personal history of Methicillin resistant Staphylococcus aureus infection; R33.9 Retention of urine, unspecified
CPT/HCPCS: 36415; 72125; 72131; 80053; 81001; 82306; 84132; 84153; 85007; 85025; 99285

== ENCOUNTER 2018-05-28 05:03 | Emergency (ER) | payer MEDICARE, MEDICAID ==
[~2018-05-28] VITALS: Ht 167.6 cm; Wt 90.7 kg
[~2018-05-28 05:03] MED LIST: DILAUDID8 MG PO; LYRICA75 M1 ORAL; NORVASC2.5 MG ORAL; SOMA350 MG PO; TAMSULOSIN HCL0.4 MG ORAL; XANAX XR0.5 MG ORAL
[2018-05-28 05:16] VITALS: BP 117/67
[2018-05-28] MEDS ORDERED: LYRICA75 M1 ORAL (05:20)
[2018-05-28] MEDS ORDERED: OXYCONTIN20 MG ORAL (05:20)
--- NOTE | 2018-05-28 05:21 | Emergency Room Report ---
History of Present Illness General Chief Complaint: Pain Source: Patient Present Illness HPI This is a 58-year-old male coming from a custodial. He has a history of chronic pain with multiple surgery in the past. He has chronic neck pain with arm pain. He scheduled for surgery at [facility] in the near future. He call 911 from the custodial because he said he can raise his right arm. Pain is 10 out of 10. Worse with movement. No fever chills. Most of his pain is localized the neck and shoulder. Allergies: Coded Allergies: No Known Allergies (Verified Allergy, Unknown, 06/20/06) Patient History Past Medical History: see triage record, old chart reviewed Past Surgical History: other Pertinent Family History: none Social History: Denies: smoking Immunizations: other Reviewed Nursing Documentation: PMH: Agreed; PSxH: Agreed Nursing Documentation-PMH Past Medical History: No Stated History Hx Cardiac Problems: Yes Hx Hypertension: Yes Hx Cancer: No Hx Neurological Problems: No Review of Systems Eye: Denies: eye pain, blurred vision ENT: Denies: ear pain, nose congestion, throat swelling Respiratory: Denies: cough, shortness of breath Cardiovascular: Denies: chest pain, palpitations Gastrointestinal: Denies: abdominal pain, diarrhea, nausea, vomiting Musculoskeletal: Reports: joint pain; Denies: back pain Skin: Denies: rash Neurological: Denies: headache, numbness Endocrine: Denies: increased thirst, increased urine Hematologic/Lymphatic: Denies: easy bruising All Other Systems: negative except mentioned in HPI Physical Exam Vital Signs Date Time Temp Pulse Resp B/P (MAP) Pulse Ox O2 Delivery O2 Flow Rate FiO2 05/28/18 05:00 98.1 65 18 127/78 98 Room Air vitals normal Sp02 EP Interpretation: reviewed, normal General Appearance: well appearing, no apparent distress, alert Head: normocephalic, atraumatic Eyes: bilateral eye PERRL, bilateral eye EOMI ENT: hearing grossly normal, normal pharynx Neck: full range of motion, supple, no meningismus Respiratory: chest non-tender, lungs clear, normal breath sounds Cardiovascular #1: regular rate, rhythm, no murmur Gastrointestinal: normal bowel sounds, non tender, no mass, no organomegaly, no bruit, non-distended Musculoskeletal: back normal, tender - Diffuse pain over the shoulder. No deformity Neurologic: alert, oriented x3 Psychiatric: mood/affect normal Skin: warm/dry Medical Decision Making Diagnostic Impression: Primary Impression: Shoulder pain, acute Qualified Codes: M25.511 - Pain in right shoulder Additional Impression: Chronic pain Qualified Codes: G89.4 - Chronic pain syndrome ER Course Patient with chronic pain. No trauma. No evidence of cauda equina syndrome, spinal after abscess or neoplastic process. No evidence of septic joint. We' ll discharge home. Last Vital Signs Date Time Temp Pulse Resp B/P (MAP) Pulse Ox O2 Delivery O2 Flow Rate FiO2 05/28/18 05:16 98.1 72 18 117/67 98 Room Air Status: improved Disposition: XFER SNF Condition: Stable Additional Instructions: Follow-up with your doctor in a week. Return if symptom worsen. Keenan Carbajal MD May 28, 2018 05:21
--- NOTE | 2018-05-28 05:23 | Emergency Room Report ---
Physical Exam Vital Signs Date Time Temp Pulse Resp B/P (MAP) Pulse Ox O2 Delivery O2 Flow Rate FiO2 05/28/18 05:00 98.1 65 18 127/78 98 Room Air Medical Decision Making Diagnostic Impression: Primary Impression: Shoulder pain, acute Qualified Codes: M25.511 - Pain in right shoulder Additional Impression: Chronic pain Qualified Codes: G89.4 - Chronic pain syndrome Other X-Ray Diagnostic Results Other X-Ray Diagnostic Results : X-Ray ordered: Right shoulder x-rays # of Views/Limited Vs Complete: 3 View Indication: Pain EP Interpretation: Yes Interpretation: no dislocation, no soft tissue swelling, no fractures Impression: No acute disease Electronically Signed by: Keenan Carbajal MD Last Vital Signs Date Time Temp Pulse Resp B/P (MAP) Pulse Ox O2 Delivery O2 Flow Rate FiO2 05/28/18 05:16 98.1 72 18 117/67 98 Room Air Status: improved Disposition: ER SNF Condition: Stable Patient Instructions: Pain Without a Known Cause Additional Instructions: Follow-up with your doctor in a week. Return if symptom worsen. Keenan Carbajal MD May 28, 2018 05:23
[2018-05-28] MEDS ORDERED: HYDROmorphone 1mg/ml Carpuject IM ONE (05:30)
[2018-05-28 06:08] VITALS: BP 116/69
--- NOTE | 2018-05-28 10:42 | Diagnostic Imaging Report ---
Indication: Right shoulder pain Findings: 3 views of the right shoulder were obtained. No acute fractures, malalignment, erosions or periostitis are identified. Soft tissues are unremarkable. Impression: Negative for acute injury
== END 2018-05-28 06:11 ==
LOC: EDBD 05:03 → EMR 05:24
DX: M25.511 Pain in right shoulder (principal); G89.29 Other chronic pain; M54.2 Cervicalgia; I10 Essential (primary) hypertension; Z98.890 Other specified postprocedural states
CPT/HCPCS: 73030; 96372; 99283; J1170